=== PATIENT | female | born 1935 | race Caucasian/White ===

== ENCOUNTER 2023-01-13 09:57 | Outpatient (CLI) | payer OTHER ==
[~2023-01-13 09:57] MED LIST: DURICEF 500 MG CAPSULE PO; OXYC1TAB9 PO
== END 2023-01-13 10:06 | disposition home or self-care (01) ==
LOC: MRI 09:57
PROVIDERS: ATTEND Psychiatry & Neurology Clinical Neurophysiology
DX: I63.30 Cerebral infarction due to thrombosis of unspecified cerebral artery (principal); G40.209 Localization-related (focal) (partial) symptomatic epilepsy and epileptic syndromes with complex partial seizures, not intractable, without status epilepticus
CPT/HCPCS: 70551